=== PATIENT | female | born 1990 | race Caucasian/White ===

== ENCOUNTER 2020-11-07 00:40 | Emergency (ER) | payer MEDICAID ==
[~2020-11-07] VITALS: Ht 162.6 cm; Wt 72.7 kg
[2020-11-07 00:52] VITALS: TEMP 98.4
[2020-11-07 01:53] VITALS: BP 111/75; PULSE 67
== END 2020-11-07 01:55 | disposition home or self-care (01) ==
LOC: COL.ER 00:40
DX: S02.5XXA Fracture of tooth (traumatic), initial encounter for closed fracture (principal); X58.XXXA Exposure to other specified factors, initial encounter